=== PATIENT | female | born 1965 ===

== ENCOUNTER 2022-09-19 16:03 | Outpatient (CLI) | payer BC, SELFPAY ==
--- NOTE | ~2022-09-19 | US_ITS ---
EXAMINATION: US pelvic complete DATE: 09/19/2022 16:32 INDICATION: Left lower quadrant abdominal pain. TECHNIQUE: Multiple transabdominal sonographic images of the pelvis were obtained. COMPARISON: None. FINDINGS: The uterus measures 7.6 x 1.6 x 3.7 cm. There is no free fluid in the pelvis. The endometrial complex measures 3 mm in thickness. The right ovary measures 2.4 x 1.7 x 2.1 cm. There is a 10.4 x 9.3 x 10. 6 cm heterogeneous mass in left adnexa. The mass demonstrates internal vascular flow. IMPRESSION: 1. 10.6 cm mass in the left adnexa. The differential diagnosis includes dermoid, neoplasm, and absces s. Pelvis MRI without and with contrast is recommended. Reviewed, dictated and finalized at location A. [facility] [employer] IMPRESSION: 1. 10.6 cm mass in the left adnexa. The differential diagnosis includes dermoid , neoplasm, and abscess. Pelvis MRI without and with contrast is recommended.
== END 2022-09-19 16:04 ==
LOC: MICIMG 16:05
PROVIDERS: PCP Internal Medicine; Visit Provider Obstetrics & Gynecology Gynecology
DX: R10.32 Left lower quadrant pain (principal)
CPT/HCPCS: 76856